=== PATIENT | male | born 1995 | race African-American/Black ===

== ENCOUNTER 2017-02-06 21:23 | Emergency (ER) | payer SELFPAY ==
[~2017-02-06] VITALS: Ht 188 cm; Wt 86.2 kg
[2017-02-06 21:33] VITALS: BP_SYST 154
[2017-02-06 22:18] VITALS: BP_SYST 154
== END 2017-02-06 22:18 | disposition home or self-care (01) ==
LOC: SED 21:23
DX: S39.011A Strain of muscle, fascia and tendon of abdomen, initial encounter (principal); X58.XXXA Exposure to other specified factors, initial encounter; Y93.61 Activity, american tackle football; Y92.89 Other specified places as the place of occurrence of the external cause; Y99.8 Other external cause status
CPT/HCPCS: 99282